=== PATIENT | female | born 1955 | race American Indian/Alaskan Native ===

== ENCOUNTER 2017-03-27 18:58 | Inpatient (IN) | payer OTHER ==
[2017-03-27 18:58] VITALS: BMI 30.2
[2017-03-27] MEDS ORDERED: Dexamethasone 4 mg/1 ml ONE (19:01)
[2017-03-27] MEDS ORDERED: Racepinephrine 2.25% Inhal Soln 0.5 ML UD ONE (19:03)
[2017-03-27] MEDS ORDERED: EPINEPHrine 1 mg/ml (1:1000) Inj ONE (19:05)
[2017-03-27] MEDS ORDERED: Racepinephrine 2.25% Inhal Soln 0.5 ML UD IH STA ×2 (19:52→20:44)
[2017-03-27] MEDS ORDERED: EPINEPHrine 1 mg/ml (1:1000) Inj SC STA ×2 (19:52→20:31)
[2017-03-27] MEDS ORDERED: DiphenhydrAMINE 50 mg/ml Inj IVP STA (19:54)
--- NOTE | 2017-03-27 21:00 | ED PDOC ---
Arrival/HPI - General Chief Complaint: Allergic Reaction Time Seen by Provider: 03/27/17 19:21 Historian: Patient - History of Present Illness Narrative History of Present Illness (Text): 61 y/o woman w/ pmhx of asthma, HTN, presents s/p eating shrimp around 5 pm now c/o facial edema most pronounced in the lips/tongue and around the eyes, pt cannot phonate and vocalize but is denying shortness of breath. Pt was in [facility] x past 2 weeks up until eating shrimp dinner and suufering this reaction . Pt deneis any CAD. 03/27/17 20:58 03/27/17 21:11 03/27/17 22:06 Time/Duration: Prior to Arrival Symptom Onset: Sudden Symptom Course: Unchanged Quality: Aching Past Medical History - Provider Review Nursing Documentation Reviewed: Yes - Tetanus Immunization Tetanus Immunization: Unknown - Cardiac Hx Hypertension: Yes - Pulmonary Hx Asthma: Yes - Neurological Hx Neurological Disorder: No - HEENT Hx HEENT Disorder: No - Renal Hx Renal Disorder: No - Hematological/Oncological Hx Cancer: Yes (breast cancer remission) - Integumentary Hx Dermatological Disorder: No - Musculoskeletal/Rheumatological Hx Musculoskeletal Disorders: No - Gastrointestinal Hx Gastrointestinal Disorders: No - Genitourinary/Gynecological Hx Genitourinary Disorders: No - Psychiatric Hx Depression: No Hx Emotional Abuse: No Hx Physical Abuse: No Hx Substance Use: No - Surgical History Hx Hysterectomy: Yes Other/Comment: RIGHT LUMPECTOMY, HYSTERECTOMY - Anesthesia Hx Anesthesia: Yes Hx Anesthesia Reactions: No - Suicidal Assessment Feels Threatened In Home Enviroment: No Family/Social History - Physician Review Nursing Documentation Reviewed: Yes Family/Social History: No Known Family HX Smoking Status: Current Some Days Smoker Hx Alcohol Use: No Hx Substance Use: No Hx Substance Use Treatment: No Allergies/Home Meds Allergies/Adverse Reactions: Allergies No Known Allergies Allergy (Verified 11/12/13 12:03) Review of Systems - Physician Review All systems were reviewed & negative as marked: Yes - Review of Systems Systems not reviewed;Unavailable: Acuity of Condition Constitutional: Normal Eyes: Normal ENT: Normal Respiratory: Normal Cardiovascular: Normal Gastrointestinal: Normal Genitourinary Female: Normal Musculoskeletal: Normal Skin: Normal Neurological: Normal Endocrine: Normal Hemo/Lymphatic: Normal Psychiatric: Normal Physical Exam Vital Signs Reviewed: Yes Vital Signs Pulse Resp BP Pulse Ox 03/27/17 20:58 87 18 153/76 H 98 03/27/17 19:31 100 H 22 149/88 97 Temperature: Afebrile Blood Pressure: Normal Pulse: Regular Respiratory Rate: Normal Appearance: Positive for: Well-Appearing, Non-Toxic, Comfortable Pain Distress: None Mental Status: Positive for: Alert and Oriented X 3 - Systems Exam Head: Present: Atraumatic, Normocephalic Pupils: Present: PERRL Extroacular Muscles: Present: EOMI Conjunctiva: Present: Normal Mouth: Present: Moist Mucous Membranes Neck: Present: Normal Range of Motion Respiratory/Chest: Present: Clear to Auscultation, Good Air Exchange. No: Respiratory Distress, Accessory Muscle Use Cardiovascular: Present: Regular Rate and Rhythm, Normal S1, S2. No: Murmurs Abdomen: Present: Normal Bowel Sounds. No: Tenderness, Distention, Peritoneal Signs Back: Present: Normal Inspection Upper Extremity: Present: Normal Inspection. No: Cyanosis, Edema Lower Extremity: Present: Normal Inspection. No: Edema Neurological: Present: GCS=15, CN II-XII Intact, Speech Normal, Motor Func Grossly Intact, Normal Sensory Function, Normal Cerebellar Funct, Norm Deep Tendon Reflexes, Gait Normal Skin: Present: Warm, Dry, Normal Color. No: Rashes Psychiatric: Present: Alert, Oriented x 3, Normal Insight, Normal Concentration Medical Decision Making ED Course and Treatment: 03/27/17 22:13 pt responding to epinephrine / racemic epinephrine/ corticosteroids/pepcid / benadryl with now ability to talk and honate andmve her tngue more freely . - Lab Interpretations Lab Results: 03/27/17 21:30 03/27/17 21:30 Lab Results 03/27/17 21:30: PT 11.2, INR 0.98, APTT 34.5 03/27/17 21:30: Sodium 144, Potassium 4.4, Chloride 107, Carbon Dioxide 25, Anion Gap 16, BUN 21, Creatinine 0.8, Est GFR ( Amer) > 60, Est GFR (Non- Af Amer) > 60, Random Glucose 233 H, Calcium 9.9, Total Bilirubin 0.3, AST 32, ALT 30, Alkaline Phosphatase 101, Troponin I < 0.01, Total Protein 7.9, Albumin 4.1, Globulin 3.8, Albumin/Globulin Ratio 1.1 01/07/18 21:30: WBC 22.3 H, RBC 4.48, Hgb 12.6, Hct 39.2, MCV 87.5, MCH 28.1, MCHC 32.1, RDW 14.6 H, Plt Count 453 H, MPV 9.4, Gran % 85.2 H, Lymph % (Auto) 13.2 L, Fleming % (Auto) 1.3, Eos % (Auto) 0.2 L, Baso % (Auto) 0.1, Gran # 18.99 H , Lymph # 2.9, Fleming # 0.3, Eos # 0.1, Baso # 0.03 - RAD Interpretation Radiology Orders: 03/27/17 21:07 CHEST PORTABLE [RAD] Stat - Medication Orders Current Medication Orders: Albuterol/Ipratropium (Duoneb 3 Mg/0.5 Mg (3 Ml) Ud) 3 ml IH Q2H PRN PRN Reason: Shortness of Breath Dexamethasone (Decadron Inj) 4 mg IVP Q6H EDGARD Stop: 03/28/17 02:01 Diphenhydramine HCl (Benadryl) 25 mg PO ONCE ONE Stop: 03/28/17 02:01 Epinephrine HCl (Epinephrine) 1 mg SC Q6H PRN PRN Reason: Shortness of Breath Sodium Chloride (Sodium Chloride 0.9%) 100 mls @ 125 mls/hr IV .Q48M EDGARD Pantoprazole Sodium (Protonix Inj) 40 mg IVP DAILY EDGARD Discontinued Medications Dexamethasone (Decadron Inj) 10 mg IVP STAT STA Stop: 03/27/17 19:54 Last Admin: 03/27/17 20:53 Dose: Diphenhydramine HCl (Benadryl) 25 mg IVP STAT STA Stop: 03/27/17 19:55 Last Admin: 03/27/17 19:00 Dose: 25 mg IVP Administration Document 03/27/17 19:00 AB (Rec: 03/27/17 20:52 AB [facility] [id number]) Charges for Administration # of IVP Administrations 1 Epinephrine HCl (Epinephrine) 1 mg SC STAT STA Stop: 03/27/17 19:53 Last Admin: 03/27/17 20:44 Dose: 1 mg Subcutaneous Administrations Document 03/27/17 20:44 LAC (Rec: 03/27/17 20:44 LAC [id number]) Injection Site MAR Injection Site Left Deltoid Charges for Administration # of Subcutaneous Administrations 1 Epinephrine HCl (Epinephrine) 1 mg SC STAT STA Stop: 03/27/17 20:32 Last Admin: 03/27/17 20:51 Dose: Not Given Non-Admin Reason: Elevated Glucose Famotidine (Pepcid) 20 mg IVP STAT STA Stop: 03/27/17 19:55 Last Admin: 03/27/17 20:55 Dose: 20 mg IVP Administration Document 03/27/17 20:55 AB (Rec: 03/27/17 20:55 AB [facility] [id number]) Charges for Administration # of IVP Administrations 1 Methylprednisolone (Solu-Medrol) 125 mg IVP STAT STA Stop: 03/27/17 19:55 Last Admin: 03/27/17 20:45 Dose: 125 mg IVP Administration Document 03/27/17 20:45 LAC (Rec: 03/27/17 20:45 LAC [id number]) Charges for Administration # of IVP Administrations 1 Racepinephrine (Racepinephrine 2.25% Inhl Soln) 0.5 ml IH STAT STA Stop: 03/27/17 19:53 Last Admin: 03/27/17 20:45 Dose: 0.5 ml Racepinephrine (Racepinephrine 2.25% Inhl Soln) 0.5 ml IH STAT STA Stop: 03/27/17 20:45 Last Admin: 03/27/17 20:51 Dose: Disposition/Present on Arrival - Present on Arrival Any Indicators Present on Arrival: No History of DVT/PE: No History of Uncontrolled Diabetes: No Urinary Catheter: No History of Decub. Ulcer: No History Surgical Site Infection Following: None - Disposition Have Diagnosis and Disposition been Completed?: Yes Diagnosis: Angioedema Disposition: HOME/ ROUTINE Disposition Time: 22:14 Patient Plan: Admission, ICU Condition: FAIR Referrals: Derian Dave MD [Primary Care Provider] - Follow up with primary Forms: [employer] (Bangladeshi)
[2017-03-27] MEDS ORDERED: Albuterol-Ipratrop 3 mg / 0.5 (3 ml) UD IH PRN (21:43)
[2017-03-27] MEDS ORDERED: EPINEPHrine 1 mg/ml (1:1000) Inj SC PRN (21:44)
[2017-03-27 21:47] LABS: ALB/GLOB RATIO 1.1 (1.1-1.8); ALBUMIN 4.1 g/dL (3.0-4.8); ALT/SGPT 30 U/L (7-56); AST/SGOT 32 U/L (14-36); BLOOD UREA NITROGEN 21 mg/dL (7-21); CALCIUM 9.9 mg/dL (8.4-10.5); GFR AFRICAN-AMERICAN > 60; GFR NON-AFRICAN AMERICAN > 60
[2017-03-27 21:48] LABS: BASO # 0.03 K/mm3 (0.0-2.0); BASO % 0.1 % (0.0-3.0); EOS # 0.1 (0.0-0.7); EOS % 0.2 % (1.5-5.0); GRAN # 18.99 (1.4-6.5); GRAN % 85.2 % (50.0-68.0); HEMOGLOBIN 12.6 g/dL (12.0-16.0); LYMPH # 2.9 (1.2-3.4); LYMPH % 13.2 % (22.0-35.0); MEAN CELL VOLUME 87.5 fl (80.0-105.0); MEAN CORPUSCULAR HEMOGLOBIN 28.1 pg (25.0-35.0); MEAN CORPUSCULAR HGB CONC 32.1 g/dl (31.0-37.0); MEAN PLATELET VOLUME 9.4 fl (7.0-11.0); MONO # 0.3 (0.1-0.6); MONO % 1.3 % (1.0-6.0); RBC 4.48 10^6/uL (3.5-6.1); RED CELL DISTRIBUTION WIDTH 14.6 % (11.5-14.5); WHITE BLOOD COUNT 22.3 10^3/ul (4.5-11.0)
[2017-03-27 21:53] LABS: INR 0.98 (0.93-1.08); PARTIAL THROMBOPLASTIN TIME 34.5 Seconds (25.1-36.5); PROTHROMBIN TIME 11.2 SECONDS (9.4-12.5)
[2017-03-27 22:01] LABS: TROPONIN I < 0.01 ng/mL
--- NOTE | 2017-03-27 22:03 | CP.PCM.HP ---
<Mary Ahn - Last Filed: 03/28/17 01:42> History of Present Illness - History of Present Illness History of Present Illness: PGY-2 H&P for hospitalist service 61 yo woman with past medical history of asthma, HTN, breast ca (remission for 15yo) presents to ED with facial edema and pronounced lips and tongue after eating shrimp around 4 pm. Per patient and sister at bedside, patient was eating shrimp with pasta this evening when her lips and tongue began to swell, they state that it started almost immediately after eating. She also reported a red rash with pruritus, swelling around her eyes. The swelling continue and her sister drove her to the ED. Sister at bedside stated that when patient initially came to ED her tongue was protruding from her mouth and she could not speak. ED gave her decadron, Benadryl, solu-medrol, epinephrin sc and racepinephrine. After the swelling decreased and patient was able to answer questions. She states that she has eaten shrimp in the past without any problems. She also states that she was short of breath on arrival but it has improved since receiving treatment. She also reports mild headache. She denies chest pain, abd pain, n/v, urinary symptoms, numbness, fever. PMH: asthma, HTN, breast ca (remission for 15yo) PSH: hysterectomy, right lumpectomy social history: denies smoking, alcohol use, illicit drug use family history: mother heart disease, diabetes, HTN allergy: seasonal Present on Admission - Present on Admission Any Indicators Present on Admission: No Review of Systems - Constitutional Constitutional: Headache. absent: Chills, Fever - EENT Nose/Mouth/Throat: Lip Swelling, Tongue Swelling - Cardiovascular Cardiovascular: Dyspnea. absent: Chest Pain, Diaphoresis, Leg Edema, Palpitations - Respiratory Respiratory: Dyspnea. absent: Cough, Hemoptysis - Gastrointestinal Gastrointestinal: absent: Abdominal Pain, Constipation, Diarrhea, Nausea, Vomiting - Genitourinary Genitourinary: absent: Difficulty Urinating, Dysuria - Musculoskeletal Musculoskeletal: absent: Muscle Weakness, Numbness, Tingling - Integumentary Integumentary: Pruritus, Rash. absent: Skin Ulcer, Sores, Wounds - Neurological Neurological: Headaches. absent: Confusion, Dizziness, Numbness, Weakness - Hematologic/Lymphatic Hematologic: absent: Easy Bleeding, Easy Bruising Past Patient History - Tetanus Immunizations Tetanus Immunization: Unknown - Past Social History Smoking Status: Current Some Days Smoker - CARDIAC Hx Hypertension: Yes - PULMONARY Hx Asthma: Yes - NEUROLOGICAL Hx Neurological Disorder: No - HEENT Hx HEENT Problems: No - RENAL Hx Chronic Kidney Disease: No - HEMATOLOGICAL/ONCOLOGICAL Hx Cancer: Yes (breast cancer remission) - INTEGUMENTARY Hx Dermatological Problems: No - MUSCULOSKELETAL/RHEUMATOLOGICAL Hx Musculoskeletal Disorders: No - GASTROINTESTINAL Hx Gastrointestinal Disorders: No - GENITOURINARY/GYNECOLOGICAL Hx Genitourinary Disorders: No - PSYCHIATRIC Hx Depression: No Hx Emotional Abuse: No Hx Physical Abuse: No Hx Substance Use: No - SURGICAL HISTORY Hx Hysterectomy: Yes Other/Comment: RIGHT LUMPECTOMY, HYSTERECTOMY - ANESTHESIA Hx Anesthesia: Yes Hx Anesthesia Reactions: No Meds Allergies/Adverse Reactions: Allergies Allergy/AdvReac Type Severity Reaction Status Date / Time shrimp Allergy ANGIOEDEMA Verified 03/28/17 01:08 Physical Exam - Constitutional Appears: No Acute Distress - Head Exam Head Exam: NORMAL INSPECTION, NORMOCEPHALIC - Eye Exam Eye Exam: Conjunctival injection - ENT Exam Additional comments: angio edema of faced, and tongue, pt having difficulty talking secondary to swelling - Respiratory Exam Respiratory Exam: Clear to Auscultation Bilateral, NORMAL BREATHING PATTERN. absent: Rhonchi, Wheezes, Respiratory Distress - Cardiovascular Exam Cardiovascular Exam: REGULAR RHYTHM, +S1, +S2. absent: Tachycardia, Diastolic murmur, Systolic Murmur - GI/Abdominal Exam GI & Abdominal Exam: Normal Bowel Sounds, Soft. absent: Distended, Firm, Guarding, Tenderness - Extremities Exam Extremities exam: Positive for: normal inspection. Negative for: pedal edema, tenderness - Neurological Exam Neurological exam: Alert, CN II-XII Intact, Oriented x3 - Skin Skin Exam: Dry, Erythema, Intact, Rash, Warm Results - Vital Signs Recent Vital Signs: Last Vital Signs Temp Pulse 87 03/27/17 20:58 Resp 18 03/27/17 20:58 BP 153/76 H 03/27/17 20:58 Pulse Ox 98 03/27/17 20:58 - Labs Result Diagrams: 03/27/17 21:30 03/27/17 21:30 Labs: Laboratory Results - last 24 hr 03/27/17 03/27/17 03/27/17 21:30 21:30 21:30 WBC 22.3 H RBC 4.48 Hgb 12.6 Hct 39.2 MCV 87.5 MCH 28.1 MCHC 32.1 RDW 14.6 H Plt Count 453 H MPV 9.4 Gran % 85.2 H Lymph % (Auto) 13.2 L Carlton % (Auto) 1.3 Eos % (Auto) 0.2 L Baso % (Auto) 0.1 Gran # 18.99 H Lymph # 2.9 Carlton # 0.3 Eos # 0.1 Baso # 0.03 PT 11.2 INR 0.98 APTT 34.5 Sodium 144 Potassium 4.4 Chloride 107 Carbon Dioxide 25 Anion Gap 16 BUN 21 Creatinine 0.8 Est GFR ( Amer) > 60 Est GFR (Non-Af Amer) > 60 Random Glucose 233 H Calcium 9.9 Total Bilirubin 0.3 AST 32 ALT 30 Alkaline Phosphatase 101 Total Protein 7.9 Albumin 4.1 Globulin 3.8 Albumin/Globulin Ratio 1.1 Assessment & Plan - Assessment and Plan (Free Text) Assessment: 61 yo woman with past medical history of asthma, HTN, breast ca (remission for 15yo) presents to ED with allergic reaction complicated with facial edema and pronounced lips and tongue after eating shrimp. Plan: Neurology - patient is awake, alert and oriented x3 - continue to monitor cardiology - hemodynamically stable - EKG showed sinus tach - maintain MAP>65 - Hx of HTN, - continue to monitor ENT - swelling has improved - 1 dose of decadron - 1 dose of benedryl - epinephrine prn - NPO Pulm - continue supplemental O2, Saturating well. - Maintain O2 sat>90% - Continue with HOB elevation> 35 degrees, - aspiration precautions - duonebs prn GI - protonix for GI ppx - NPO, strict renal - BUN/Cr stable - monitor electrolytes, corrent as needed - maintain euvolemia - Continue to monitor ID - afebrile with leukocytosis - most likely due to steroid use - will continue to monitor Endo - Blood sugar elevated most likely secondary to steroid use - ISS low - finger sticks achs - Maintain blood glucose between 140-180 DVT ppx - SCD GI ppx - Protonix <Nika HAMMER,Maximilian - Last Filed: 03/28/17 09:57> Results - Vital Signs Recent Vital Signs: Last Vital Signs Temp 98 F 03/28/17 04:00 Pulse 88 03/28/17 08:00 Resp 20 03/28/17 08:00 BP 135/79 03/28/17 08:00 Pulse Ox 95 03/28/17 08:00 - Labs Result Diagrams: 03/28/17 07:15 03/28/17 07:15 Labs: Laboratory Results - last 24 hr 03/27/17 03/28/17 03/28/17 22:45 07:15 07:15 WBC 10.1 D RBC 4.34 Hgb 12.1 Hct 37.2 MCV 85.7 MCH 27.9 MCHC 32.5 RDW 14.4 Plt Count 399 MPV 9.0 Gran % 90.2 H Lymph % (Auto) 9.3 L Carlton % (Auto) 0.4 L Eos % (Auto) 0.0 L Baso % (Auto) 0.1 Gran # 9.13 H Lymph # 0.9 L Carlton # 0.0 L Eos # 0.0 Baso # 0.01 Neutrophils % (Manual) 92 H Lymphocytes % (Manual) 8 L Monocytes % (Manual) TEST NOT PERFORMED Platelet Evaluation Normal Sodium 141 Potassium 4.7 Chloride 109 H Carbon Dioxide 23 Anion Gap 14 BUN 18 Creatinine 0.7 Est GFR ( Amer) > 60 Est GFR (Non-Af Amer) > 60 POC Glucose (mg/dL) Random Glucose 159 H Calcium 9.6 Phosphorus 3.0 3.7 Magnesium 1.5 L 1.4 L Total Bilirubin 0.3 AST 23 ALT 26 Alkaline Phosphatase 86 Troponin I Total Protein 7.7 Albumin 4.0 Globulin 3.7 Albumin/Globulin Ratio 1.1 03/28/17 03/28/17 07:15 07:49 WBC RBC Hgb Hct MCV MCH MCHC RDW Plt Count MPV Gran % Lymph % (Auto) Carlton % (Auto) Eos % (Auto) Baso % (Auto) Gran # Lymph # Carlton # Eos # Baso # Neutrophils % (Manual) Lymphocytes % (Manual) Monocytes % (Manual) Platelet Evaluation Sodium Potassium Chloride Carbon Dioxide Anion Gap BUN Creatinine Est GFR ( Amer) Est GFR (Non-Af Amer) POC Glucose (mg/dL) 129 H Random Glucose Calcium Phosphorus Magnesium Total Bilirubin AST ALT Alkaline Phosphatase Troponin I < 0.01 Total Protein Albumin Globulin Albumin/Globulin Ratio Attending/Attestation - Attestation I have personally seen and examined this patient.: Yes I have fully participated in the care of the patient.: Yes I have reviewed all pertinent clinical information: Yes Notes (Text): -I agree with the above H&P completed by the resident physician, with the following additions and/or changes: -The patient is a 61 year old woman with a history of asthma, HTN and breast cancer (in remission for 15yrs) being admitted to the ICU for observation due to angioedema (secondary to recent shrimp ingestion). She denies having any similar reactions after eating shrimp in the past. Initially upon presentation to the ED, her oral and facial edema was very severe (with her swollen tongue hanging out her mouth). She denies SOB but does report sensation of throat narrowing and dysphagia. She was initially tachycadic on ED vitals but her O2 sat and RR were normal. In the ED, she received multiple doses of IV steroids, racemic epinephrine and IV Benadryl, after which, her edema has improved. She will be observed overnight in the ICU to ensure her symptoms don't worsen and/ or lead to respiratory failure once ED treatments wear off. PRN racemic epinephrine will be kept near bedside and another dose of IV Decadron will be given in 6 hours. O2 via NC, IVF's and PRN Duo-nebs for supportive treatment. Strict NPO and HOB>45 degrees. Of note, anesthesia was also made aware of the patient's case by the ED physician, in case she deteriorates overnight and requires intubation.
[2017-03-27] MEDS: Sodium Chloride 0.9% 100 ML IV SCH ×2 (22:08→23:30)
[2017-03-27 23:03] LABS: MAGNESIUM 1.5 mg/dL (1.7-2.2)
[2017-03-28] MEDS ORDERED: Dexamethasone 4 mg/1 ml IVP SCH (02:00)
[2017-03-28] MEDS ORDERED: DiphenhydrAMINE 50 mg/ml Inj IVP ONE (02:00)
[2017-03-28] MEDS ORDERED: Magnesium Sulfate 2 GM in Sodium Chloride 0.9% 100 ML IVPB ONE ×2 (04:23→10:28)
[2017-03-28] MEDS ORDERED: Racepinephrine 2.25% Inhal Soln 0.5 ML UD IH PRN (05:50)
[2017-03-28 07:34] LABS: BASO # 0.01 K/mm3 (0.0-2.0); BASO % 0.1 % (0.0-3.0); GRAN # 9.13 (1.4-6.5); GRAN % 90.2 % (50.0-68.0); HEMOGLOBIN 12.1 g/dL (12.0-16.0); LYMPH # 0.9 (1.2-3.4); LYMPH % 9.3 % (22.0-35.0); MEAN CELL VOLUME 85.7 fl (80.0-105.0); MEAN CORPUSCULAR HEMOGLOBIN 27.9 pg (25.0-35.0); MEAN CORPUSCULAR HGB CONC 32.5 g/dl (31.0-37.0); MONO % 0.4 % (1.0-6.0); PLATELET COUNT 399 10^3/uL (120.0-450.0); RBC 4.34 10^6/uL (3.5-6.1); RED CELL DISTRIBUTION WIDTH 14.4 % (11.5-14.5); WHITE BLOOD COUNT 10.1 10^3/ul (4.5-11.0)
[2017-03-28 08:08] LABS: ALB/GLOB RATIO 1.1 (1.1-1.8); ALT/SGPT 26 U/L (7-56); AST/SGOT 23 U/L (14-36); BLOOD UREA NITROGEN 18 mg/dL (7-21); CALCIUM 9.6 mg/dL (8.4-10.5); GFR AFRICAN-AMERICAN > 60; GFR NON-AFRICAN AMERICAN > 60; MAGNESIUM 1.4 mg/dL (1.7-2.2)
[2017-03-28 09:05] LABS: LYMPHOCYTE 8 % (22.0-35.0); NEUTROPHIL 92 % (50.0-70.0)
[2017-03-28 09:06] LABS: PLATELET ESTIMATE NORMAL (NORMAL)
--- NOTE | 2017-03-28 09:18 | RAD ---
HISTORY: rout med exam COMPARISON: 03/18/2009 FINDINGS: LUNGS: No active pulmonary disease. PLEURA: No significant pleural effusion identified, no pneumothorax apparent. CARDIOVASCULAR: No radiographic findings to suggest acute or significant cardiovascular disease. OSSEOUS STRUCTURES: No significant abnormalities. VISUALIZED UPPER ABDOMEN: Normal. OTHER FINDINGS: None. IMPRESSION: No active disease. No significant interval change compared to the prior examination(s).
[2017-03-28] MEDS: Insulin Reg-LOW-Coverage SC SCH ×4 (09:21→22:38)
[2017-03-28] MEDS ORDERED: DiphenhydrAMINE 50 mg/ml Inj IVP PRN (10:16)
--- NOTE | 2017-03-28 10:44 | CP.PCM.PN ---
<Kenroy Gregorio - Last Filed: 03/28/17 17:21> Subjective - Date & Time of Evaluation Date of Evaluation: 03/28/17 Time of Evaluation: 06:00 - Subjective Subjective: Patient seen and evaluated bedside. Patient states her throat hurts, she also complained of non radiating, sharp, reproducible midsternal chest pain which got worse with inhalation. She felt as the swelling in her throat and tongue had decreased. She denied any nausea, vomiting, fever, headaches, or any other complains at this time. Objective - Vital Signs/Intake and Output Vital Signs (last 24 hours): Temp Pulse Resp BP Pulse Ox 98 F 88 20 135/79 95 03/28/17 04:00 03/28/17 08:00 03/28/17 08:00 03/28/17 08:00 03/28/17 08:00 Intake and Output: 03/28/17 03/28/17 06:59 18:59 Intake Total 1100 Output Total 1000 Balance 100 - Medications Medications: Current Medications Acetaminophen (Tylenol 325mg Tab) 650 mg PO ONCE ONE Stop: 03/28/17 10:43 Albuterol/Ipratropium (Duoneb 3 Mg/0.5 Mg (3 Ml) Ud) 3 ml IH Q2H PRN PRN Reason: Shortness of Breath Diphenhydramine HCl (Benadryl) 50 mg IVP Q4H PRN PRN Reason: Allergy symptoms Famotidine (Pepcid) 20 mg IVP BID EDGARD Sodium Chloride (Sodium Chloride 0.9%) 100 mls @ 125 mls/hr IV .Q48M EDGARD Last Admin: 03/27/17 23:30 Dose: 125 mls/hr Magnesium Sulfate 2 gm/ Sodium (Chloride) 104 mls @ 102 mls/hr IVPB ONCE ONE Stop: 03/28/17 11:29 Insulin Human Regular (Humulin R Low) 0 units SC ACHS EDGARD PRN Reason: Protocol Last Admin: 03/28/17 09:21 Dose: Not Given Methylprednisolone (Solu-Medrol) 40 mg IVP Q12 EDGARD Racepinephrine (Racepinephrine 2.25% Inhl Soln) 0.5 ml IH Q6H PRN PRN Reason: Anaphylaxis - Labs Labs: 03/28/17 07:15 03/28/17 07:15 PT 11.2 SECONDS (9.4-12.5) 03/27/17 21:30 INR 0.98 (0.93-1.08) 03/27/17 21:30 APTT 34.5 Seconds (25.1-36.5) 03/27/17 21:30 - Constitutional Appears: No Acute Distress - Head Exam Head Exam: ATRAUMATIC, NORMAL INSPECTION, NORMOCEPHALIC Additional comments: Face is swollen but decreased since yesterday, particluarly around the eyes and lips - Eye Exam Eye Exam: Normal appearance, Periorbital swelling - ENT Exam ENT Exam: Normal Oropharynx - Neck Exam Neck Exam: absent: Tenderness - Respiratory Exam Respiratory Exam: Clear to Ausculation Bilateral, NORMAL BREATHING PATTERN - Cardiovascular Exam Cardiovascular Exam: REGULAR RHYTHM, +S1, +S2 - GI/Abdominal Exam GI & Abdominal Exam: Soft, Normal Bowel Sounds - Extremities Exam Extremities Exam: Full ROM - Neurological Exam Neurological Exam: Alert, Awake, Oriented x3 - Psychiatric Exam Psychiatric exam: Normal Affect - Skin Skin Exam: Normal Color, Warm Assessment and Plan - Assessment and Plan (Free Text) Assessment: 61 yo woman with past medical history of asthma, HTN, breast ca (remission for 15yo) presents to ED with allergic reaction complicated with facial edema and pronounced lips and tongue after eating shrimp. Plan: Neurology - patient is awake, alert and oriented x3 - continue to monitor cardiology - hemodynamically stable - EKG showed sinus tach - maintain MAP>65 - Hx of HTN, continue to monitor -PAtient complained of reproducible chest pain, EKG no new changes, trops negative -Patient given Tylenol for reproducible chest pain ENT - swelling has improved on the face andd tongue - 1 dose of decadron - 1 dose of benedryl - epinephrine prn - NPO - Methyl Prednisolone 40q12 Pulm - continue supplemental O2, Saturating well. - Maintain O2 sat>90% - Continue with HOB elevation> 35 degrees, - aspiration precautions - duonebs prn GI - protonix for GI ppx - NPO, strict renal - BUN/Cr stable - monitor electrolytes, corrent as needed - maintain euvolemia - Continue to monitor -Magnesium repleted,continue to monitor ID - afebrile with leukocytosis - most likely due to steroid use - will continue to monitor Endo - Blood sugar elevated most likely secondary to steroid use - ISS low - finger sticks achs - Maintain blood glucose between 140-180 DVT ppx - SCD GI ppx - Protonix Patient stable and dongraded to telemetry <Jessica Sinha - Last Filed: 03/28/17 17:26> Objective - Vital Signs/Intake and Output Vital Signs (last 24 hours): Temp Pulse Resp BP Pulse Ox 98.6 F 88 20 135/79 95 03/28/17 16:00 03/28/17 14:00 03/28/17 08:00 03/28/17 08:00 03/28/17 08:00 - Medications Medications: Current Medications Albuterol/Ipratropium (Duoneb 3 Mg/0.5 Mg (3 Ml) Ud) 3 ml IH Q2H PRN PRN Reason: Shortness of Breath Amlodipine Besylate (Norvasc) 5 mg PO DAILY [facility] Last Admin: 03/28/17 11:19 Dose: 5 mg Diphenhydramine HCl (Benadryl) 50 mg IVP Q4H PRN PRN Reason: Allergy symptoms Famotidine (Pepcid) 20 mg IVP BID [facility] Last Admin: 03/28/17 10:51 Dose: 20 mg Sodium Chloride (Sodium Chloride 0.9%) 100 mls @ 125 mls/hr IV .Q48M [facility] Last Admin: 03/27/17 23:30 Dose: 125 mls/hr Insulin Human Regular (Humulin R Low) 0 units SC ACHS EDGARD PRN Reason: Protocol Last Admin: 03/28/17 16:57 Dose: Not Given Methylprednisolone (Solu-Medrol) 40 mg IVP Q12 [facility] Last Admin: 03/28/17 10:51 Dose: 40 mg Racepinephrine (Racepinephrine 2.25% Inhl Soln) 0.5 ml IH Q6H PRN PRN Reason: Anaphylaxis - Labs Labs: PT 11.2 SECONDS (9.4-12.5) 03/27/17 21:30 INR 0.98 (0.93-1.08) 03/27/17 21:30 APTT 34.5 Seconds (25.1-36.5) 03/27/17 21:30 Attending/Attestation - Attestation I have personally seen and examined this patient.: Yes I have fully participated in the care of the patient.: Yes I have reviewed all pertinent clinical information, including history, physical exam and plan: Yes Notes (Text): 03/28/17 17:24 Patient was seen and examined with veterinary medical officer. Agreed with resident assessment and plan. 61 yrs female was admitted with angioedema, improving, no sign of respiratory distress, we will start on clear liquid diet. Chest is atypical, has chest wall tenderness, EKG showed NSR, no ischemic changes on EKG, Management plan was discussed in detail with patient Education was provided.
[2017-03-28] MEDS: MethylPREDNISolone 40 mg Vial IVP SCH ×2 (10:51→22:38)
--- NOTE | 2017-03-28 13:06 | CP.PCM.PN ---
Subjective - Date & Time of Evaluation Date of Evaluation: 03/28/17 Time of Evaluation: 07:30 - Subjective Subjective: Pt seen and examined, reports to be doing significantly better, swelling improved. Objective - Vital Signs/Intake and Output Vital Signs (last 24 hours): Temp Pulse Resp BP Pulse Ox 98 F 88 20 135/79 95 03/28/17 04:00 03/28/17 08:00 03/28/17 08:00 03/28/17 08:00 03/28/17 08:00 Intake and Output: 03/28/17 03/28/17 06:59 18:59 Intake Total 1100 Output Total 1000 Balance 100 - Medications Medications: Current Medications Albuterol/Ipratropium (Duoneb 3 Mg/0.5 Mg (3 Ml) Ud) 3 ml IH Q2H PRN PRN Reason: Shortness of Breath Amlodipine Besylate (Norvasc) 5 mg PO DAILY [facility] Last Admin: 03/28/17 11:19 Dose: 5 mg Diphenhydramine HCl (Benadryl) 50 mg IVP Q4H PRN PRN Reason: Allergy symptoms Famotidine (Pepcid) 20 mg IVP BID [facility] Last Admin: 03/28/17 10:51 Dose: 20 mg Sodium Chloride (Sodium Chloride 0.9%) 100 mls @ 125 mls/hr IV .Q48M [facility] Last Admin: 03/27/17 23:30 Dose: 125 mls/hr Insulin Human Regular (Humulin R Low) 0 units SC ACHS EDGARD PRN Reason: Protocol Last Admin: 03/28/17 11:41 Dose: Not Given Methylprednisolone (Solu-Medrol) 40 mg IVP Q12 [facility] Last Admin: 03/28/17 10:51 Dose: 40 mg Racepinephrine (Racepinephrine 2.25% Inhl Soln) 0.5 ml IH Q6H PRN PRN Reason: Anaphylaxis - Labs Labs: 03/28/17 07:15 03/28/17 07:15 PT 11.2 SECONDS (9.4-12.5) 03/27/17 21:30 INR 0.98 (0.93-1.08) 03/27/17 21:30 APTT 34.5 Seconds (25.1-36.5) 03/27/17 21:30 - Constitutional Appears: Well, Non-toxic, No Acute Distress - Head Exam Head Exam: NORMAL INSPECTION - Eye Exam Eye Exam: Normal appearance - ENT Exam ENT Exam: Mucous Membranes Moist, Normal Oropharynx - Respiratory Exam Respiratory Exam: Clear to Ausculation Bilateral, NORMAL BREATHING PATTERN - Cardiovascular Exam Cardiovascular Exam: REGULAR RHYTHM, +S1, +S2 - GI/Abdominal Exam GI & Abdominal Exam: Soft, Normal Bowel Sounds - Extremities Exam Extremities Exam: Full ROM, Normal Inspection - Neurological Exam Neurological Exam: Alert, Awake, Oriented x3 Assessment and Plan - Assessment and Plan (Free Text) Assessment: 61yo female a/w allergic reaction Angioedema Allergic reaction HTN - currently afebrile, HD stable, comfortable on 2LNC, in NAD - ENT exam with minimal residual tounge swelling, protecting airway, much improved angioedema Recommend: - supp o2 as needed - follow up cultures - BP control, resume home meds - IVF hydration - Pepcid IV - Solumedrol 40mg q12hr - Benadryl PRN - speech swallow eval - GI ppx - DVT ppx - FS control - Stable, transfer to telemetry
--- NOTE | 2017-03-28 16:52 | CARD ---
APPROVED REPORT EKG Measurement Heart [id number] <Conclusion> Sinus tachycardia Moderate voltage criteria for LVH, may be normal variant Inferior infarct, age undetermined Abnormal ECG
--- NOTE | 2017-03-28 20:35 | CARD ---
APPROVED REPORT EKG Measurement Heart [id number] <Conclusion> Normal sinus rhythm Normal ECG
[2017-03-28 23:08] VITALS: BP 153/75; RESP 15; O2SAT 91
[2017-03-29 01:05] VITALS: TEMP 97.8
[2017-03-29] MEDS ORDERED: Sodium Chloride 0.9% 1,000 ML IV SCH (04:49)
[2017-03-29 07:11] LABS: BASO # 0.01 K/mm3 (0.0-2.0); BASO % 0.1 % (0.0-3.0); GRAN # 12.95 (1.4-6.5); GRAN % 90.4 % (50.0-68.0); HEMOGLOBIN 11.2 g/dL (12.0-16.0); LYMPH # 1.2 (1.2-3.4); MEAN CELL VOLUME 86.3 fl (80.0-105.0); MEAN CORPUSCULAR HEMOGLOBIN 27.3 pg (25.0-35.0); MEAN CORPUSCULAR HGB CONC 31.6 g/dl (31.0-37.0); MEAN PLATELET VOLUME 9.4 fl (7.0-11.0); MONO # 0.2 (0.1-0.6); MONO % 1.5 % (1.0-6.0); RBC 4.1 10^6/uL (3.5-6.1); RED CELL DISTRIBUTION WIDTH 14.7 % (11.5-14.5); WHITE BLOOD COUNT 14.3 10^3/ul (4.5-11.0)
[2017-03-29 07:15] LABS: ALB/GLOB RATIO 1.1 (1.1-1.8); ALBUMIN 3.7 g/dL (3.0-4.8); ALT/SGPT 25 U/L (7-56); AST/SGOT 32 U/L (14-36); BLOOD UREA NITROGEN 12 mg/dL (7-21); CALCIUM 9.1 mg/dL (8.4-10.5); GFR AFRICAN-AMERICAN > 60; GFR NON-AFRICAN AMERICAN > 60
[2017-03-29] MEDS: Insulin Reg-LOW-Coverage SC SCH (08:22)
[2017-03-29] MEDS: MethylPREDNISolone 40 mg Vial IVP SCH (09:27)
--- NOTE | 2017-03-29 11:32 | CP.PCM.DIS ---
<Kenroy Gregorio - Last Filed: 03/29/17 16:46> Provider - Provider Date of Admission: 03/28/17 13:54 Attending physician: Jessica Sinha MD Primary care physician: Derian Dave MD Time Spent in preparation of Discharge (in minutes): 70 Hospital Course - Lab Results Lab Results: Most Recent Lab Values WBC 14.3 10^3/ul (4.5-11.0) H D 03/29/17 06:30 RBC 4.10 10^6/uL (3.5-6.1) 03/29/17 06:30 Hgb 11.2 g/dL (12.0-16.0) L 03/29/17 06:30 Hct 35.4 % (36.0-48.0) L 03/29/17 06:30 MCV 86.3 fl (80.0-105.0) 03/29/17 06:30 MCH 27.3 pg (25.0-35.0) 03/29/17 06:30 MCHC 31.6 g/dl (31.0-37.0) 03/29/17 06:30 RDW 14.7 % (11.5-14.5) H 03/29/17 06:30 Plt Count 406 10^3/uL (120.0-450.0) 03/29/17 06:30 MPV 9.4 fl (7.0-11.0) 03/29/17 06:30 Gran % 90.4 % (50.0-68.0) H 03/29/17 06:30 Lymph % (Auto) 8.0 % (22.0-35.0) L 03/29/17 06:30 [place] % (Auto) 1.5 % (1.0-6.0) 03/29/17 06:30 Eos % (Auto) 0.0 % (1.5-5.0) L 03/29/17 06:30 Baso % (Auto) 0.1 % (0.0-3.0) 03/29/17 06:30 Gran # 12.95 (1.4-6.5) H 03/29/17 06:30 Lymph # 1.2 (1.2-3.4) 03/29/17 06:30 [place] # 0.2 (0.1-0.6) 03/29/17 06:30 Eos # 0.0 (0.0-0.7) 03/29/17 06:30 Baso # 0.01 K/mm3 (0.0-2.0) 03/29/17 06:30 Neutrophils % (Manual) 92 % (50.0-70.0) H 03/28/17 07:15 Lymphocytes % (Manual) 8 % (22.0-35.0) L 03/28/17 07:15 Monocytes % (Manual) TEST NOT PERFORMED 03/28/17 07:15 Platelet Evaluation Normal (NORMAL) 03/28/17 07:15 PT 11.2 SECONDS (9.4-12.5) 03/27/17 21:30 INR 0.98 (0.93-1.08) 03/27/17 21:30 APTT 34.5 Seconds (25.1-36.5) 03/27/17 21:30 Sodium 138 mmol/L (132-148) 03/29/17 06:30 Potassium 4.6 mmol/L (3.6-5.0) 03/29/17 06:30 Chloride 108 mmol/L (98-107) H 03/29/17 06:30 Carbon Dioxide 26 mmol/L (21-33) 03/29/17 06:30 Anion Gap 10 (10-20) 03/29/17 06:30 BUN 12 mg/dL (7-21) 03/29/17 06:30 Creatinine 0.8 mg/dl (0.7-1.2) 03/29/17 06:30 Est GFR ( Amer) > 60 03/29/17 06:30 Est GFR (Non-Af Amer) > 60 03/29/17 06:30 POC Glucose (mg/dL) 143 mg/dL (65-110) H 03/29/17 07:52 Random Glucose 166 mg/dL (70-110) H 03/29/17 06:30 Calcium 9.1 mg/dL (8.4-10.5) 03/29/17 06:30 Phosphorus 3.7 mg/dL (2.5-4.5) 03/28/17 07:15 Magnesium 1.4 mg/dL (1.7-2.2) L 03/28/17 07:15 Total Bilirubin 0.3 mg/dL (0.2-1.3) 03/29/17 06:30 AST 32 U/L (14-36) 03/29/17 06:30 ALT 25 U/L (7-56) 03/29/17 06:30 Alkaline Phosphatase 85 U/L (38-126) 03/29/17 06:30 Troponin I < 0.01 ng/mL 03/28/17 07:15 Total Protein 7.2 g/dL (5.8-8.3) 03/29/17 06:30 Albumin 3.7 g/dL (3.0-4.8) 03/29/17 06:30 Globulin 3.5 gm/dL 03/29/17 06:30 Albumin/Globulin Ratio 1.1 (1.1-1.8) 03/29/17 06:30 - Hospital Course Hospital Course: 61 yo woman with past medical history of asthma, HTN, breast ca (remission for 15yo) presents to ED with allergic reaction complicated with facial edema and pronounced lips and tongue after eating shrimp. Patient was given epinephrine and decadron and placed on scheduled oral steroids. Also given benadryl. EKG was ordered showing sinus tachycardia. Supplemental oxygen was provided. Blood sugar was monitored. She was placed on appropriate GI and DT prophylaxis. Patients swelling improved over two days and her diet was advanced from liquids to soft and tolerated well. She had no issues breathing and had no complaints. She was discharged home and advised to avoid shrimp. Discharge Exam - Head Exam Head Exam: ATRAUMATIC, NORMAL INSPECTION, NORMOCEPHALIC - Eye Exam Eye Exam: EOMI, Normal appearance, PERRL Pupil Exam: NORMAL ACCOMODATION - ENT Exam ENT Exam: Mucous Membranes Moist - Respiratory Exam Respiratory Exam: Clear to PA & Lateral, NORMAL BREATHING PATTERN, UNREMARKABLE - Cardiovascular Exam Cardiovascular Exam: REGULAR RHYTHM, +S1, +S2 - GI/Abdominal Exam GI & Abdominal Exam: Normal Bowel Sounds - Neurological Exam Neurological exam: Alert, CN II-XII Intact, Oriented x3 - Skin Skin Exam: Normal Color Discharge Plan - Discharge Medications Prescriptions: DiphenhydrAMINE [Benadryl] 25 mg PO Q6H #28 cap Famotidine [Pepcid] 20 mg PO BID #14 tablet Methylprednisolone [Medrol Dose Pack (21 tabs)] See Taper PO DAILY #21 mg - Follow Up Plan Condition: FAIR Disposition: HOME/ ROUTINE Additional Instructions: Please take the Medrol Dose jeremy as directed on the label. Continue Benadryl and Pepcid for a week. Please stay away from foods with shrimp or shellfish. Return to Emergency room for similar symptoms. Referrals: Derian Dave MD [Primary Care Provider] - <Jessica Sinha - Last Filed: 03/30/17 16:40> Provider - Provider Date of Admission: 03/28/17 13:54 Attending physician: Jessica Sinha MD Primary care physician: Derian Dave MD Time Spent in preparation of Discharge (in minutes): 35 Hospital Course - Lab Results Lab Results: Most Recent Lab Values WBC 14.3 10^3/ul (4.5-11.0) H D 03/29/17 06:30 RBC 4.10 10^6/uL (3.5-6.1) 03/29/17 06:30 Hgb 11.2 g/dL (12.0-16.0) L 03/29/17 06:30 Hct 35.4 % (36.0-48.0) L 03/29/17 06:30 MCV 86.3 fl (80.0-105.0) 03/29/17 06:30 MCH 27.3 pg (25.0-35.0) 03/29/17 06:30 MCHC 31.6 g/dl (31.0-37.0) 03/29/17 06:30 RDW 14.7 % (11.5-14.5) H 03/29/17 06:30 Plt Count 406 10^3/uL (120.0-450.0) 03/29/17 06:30 MPV 9.4 fl (7.0-11.0) 03/29/17 06:30 Gran % 90.4 % (50.0-68.0) H 03/29/17 06:30 Lymph % (Auto) 8.0 % (22.0-35.0) L 03/29/17 06:30 [place] % (Auto) 1.5 % (1.0-6.0) 03/29/17 06:30 Eos % (Auto) 0.0 % (1.5-5.0) L 03/29/17 06:30 Baso % (Auto) 0.1 % (0.0-3.0) 03/29/17 06:30 Gran # 12.95 (1.4-6.5) H 03/29/17 06:30 Lymph # 1.2 (1.2-3.4) 03/29/17 06:30 [place] # 0.2 (0.1-0.6) 03/29/17 06:30 Eos # 0.0 (0.0-0.7) 03/29/17 06:30 Baso # 0.01 K/mm3 (0.0-2.0) 03/29/17 06:30 Neutrophils % (Manual) 92 % (50.0-70.0) H 03/28/17 07:15 Lymphocytes % (Manual) 8 % (22.0-35.0) L 03/28/17 07:15 Monocytes % (Manual) TEST NOT PERFORMED 03/28/17 07:15 Platelet Evaluation Normal (NORMAL) 03/28/17 07:15 PT 11.2 SECONDS (9.4-12.5) 03/27/17 21:30 INR 0.98 (0.93-1.08) 03/27/17 21:30 APTT 34.5 Seconds (25.1-36.5) 03/27/17 21:30 Sodium 138 mmol/L (132-148) 03/29/17 06:30 Potassium 4.6 mmol/L (3.6-5.0) 03/29/17 06:30 Chloride 108 mmol/L (98-107) H 03/29/17 06:30 Carbon Dioxide 26 mmol/L (21-33) 03/29/17 06:30 Anion Gap 10 (10-20) 03/29/17 06:30 BUN 12 mg/dL (7-21) 03/29/17 06:30 Creatinine 0.8 mg/dl (0.7-1.2) 03/29/17 06:30 Est GFR ( Amer) > 60 03/29/17 06:30 Est GFR (Non-Af Amer) > 60 03/29/17 06:30 POC Glucose (mg/dL) 169 mg/dL (65-110) H 03/29/17 11:36 Random Glucose 166 mg/dL (70-110) H 03/29/17 06:30 Calcium 9.1 mg/dL (8.4-10.5) 03/29/17 06:30 Phosphorus 3.7 mg/dL (2.5-4.5) 03/28/17 07:15 Magnesium 1.4 mg/dL (1.7-2.2) L 03/28/17 07:15 Total Bilirubin 0.3 mg/dL (0.2-1.3) 03/29/17 06:30 AST 32 U/L (14-36) 03/29/17 06:30 ALT 25 U/L (7-56) 03/29/17 06:30 Alkaline Phosphatase 85 U/L (38-126) 03/29/17 06:30 Troponin I < 0.01 ng/mL 03/28/17 07:15 Total Protein 7.2 g/dL (5.8-8.3) 03/29/17 06:30 Albumin 3.7 g/dL (3.0-4.8) 03/29/17 06:30 Globulin 3.5 gm/dL 03/29/17 06:30 Albumin/Globulin Ratio 1.1 (1.1-1.8) 03/29/17 06:30 Attending/Attestation - Attestation I have personally seen and examined this patient.: Yes I have fully participated in the care of the patient.: Yes I have reviewed all pertinent clinical information, including history, physical exam and plan: Yes Notes (Text): 03/30/17 16:38 Patient was seen and examined with ophthalmic medical technician. Agreed with resident assessment and plan. 61 yrs female was admitted with angioedema,treated with IV steroid, Pepcid and Benadryl.Patient swelling has improved, improving, no sign of respiratory distress,Patient is tolerating diet.She will be discharged home and will follow up with PCP. Patient has been advised not to eat Shrimp . Management plan was discussed in detail with patient Education was provided.
[2017-03-29 11:42] VITALS: PULSE 73
== END 2017-03-29 13:06 | disposition home or self-care (01) | DRG 916 ==
LOC: ED 18:58 → ERH 22:14 → ICU 23:18 → OBSVTOIN 03-28 13:54
PROVIDERS: ADMIT Internal Medicine; ATTEND Internal Medicine
DX: T78.3XXA Angioneurotic edema, initial encounter (principal); I10 Essential (primary) hypertension; J45.909 Unspecified asthma, uncomplicated; L29.9 Pruritus, unspecified; Z82.49 Family history of ischemic heart disease and other diseases of the circulatory system; Z83.3 Family history of diabetes mellitus; Z85.3 Personal history of malignant neoplasm of breast; Z87.891 Personal history of nicotine dependence; Z90.710 Acquired absence of both cervix and uterus; Z91.013 Allergy to seafood; R73.9 Hyperglycemia, unspecified; T38.0X5A Adverse effect of glucocorticoids and synthetic analogues, initial encounter